=== PATIENT | female | born 1945 | race Caucasian/White ===

== ENCOUNTER 2025-04-13 10:50 | Outpatient (AMB) | payer MEDICARE, SELFPAY ==
--- NOTE | 2025-04-13 10:52 | MHC.PC.OV ---
Vital Signs 04/13/25 11:00 04/13/25 11:36 Height 5 ft 6 in Weight 160 lb 2 oz BMI 25.8 BP 154/80 H 160/90 H Blood Pressure Location Rt brachial Lt brachial Position Sitting Sitting Respiration 16 Pulse 77 Pulse Source Pulse Oximeter Temp 97.8 F Temp Source Oral Pulse Oximetry (%) 98 Oxygen Delivery Method Room Air Intake Visit Reasons: Bp Medication Intake Note: patient here for new patient visit Marketing Assistant Retail Division Required: No Is last menstrual period known: No Post menopausal: No Patient : No Allergies Penicillins Allergy (Intermediate, Verified 04/13/25 11:19) Swelling Medication List - Last Reconciled 04/13/25 by Zaida Portillo, [employer]- amlodipine 10 mg PO DAILY Tobacco use date assessed: 04/13/25 Fall risk assessment: 2 + Falls in past year Last assessed Fall Risk: 04/13/25 Dental Screening Dental Screen Date: 04/13/25 Did you have a dental visit in the last 12 months?: No Did you have a dental problem in the last 6 months where you did not have access to dental care?: No Was dental information given to patient?: No HPI HPI Comments History of Present Illness Details 79 Y/O F HTN, HLD, SANDOVAL, MDD, overactive bladder, COPD SurgHx: bilat knee replacements, MARGO, s/p cataract extraction FHx: Son 2022 drug OD, SocHx: retired Special water safety teacher Health Maintenance: Colon: Mammo DEXA PAP Vaccines: Tdap 04/13/25, PCV 20 due, otherwise UTD AAA screen EKG: done today in office, shows normal sinus rhythm, borderline QTC for 402/478 MS, LVH, prominent S-wave in V1 V2, tall R-wave in V5 V6, ST-depression with asymmetric T-wave inversion in lateral leads 1, aVL, V5 V6 [place] of Care: Optho wears glasses Visual Acuity: Hearing Screening: ACP: Dietary/Nutrition/Exercise Edu provided: Y History of Present Illness The patient is a 79-year-old female presenting to establish care and for management of her chronic conditions, including hyperlipidemia, hypertension, generalized anxiety disorder, and depressive disorder. Previous PCP: Lauren no records Hypertension: - The patient was found to have very high blood pressure during a physical for cataract surgery clearance and was started on amlodipine by Dr. Caceres, which has helped. - She still experiences hot flashes, similar to how she felt before taking the medication, although not as severe. - She endorses a history of falling and passing out. - Was on hctz and metorpolol in the past Depressive and Anxiety Disorder: - The patient's history is significant for major life stressors, including the of her son two years ago, a divorce, and the of three immediate family members within a two-month period. - She was previously treated for depression by Dr. Pastor with fluoxetine and trazodone, which improved her mood and sleep. - She stopped taking these medications about two years ago due to financial reasons, and her condition subsequently worsened. - She complains of head shaking, which her son has noticed. - was on prozac 50 mg in the past Insomnia: - The patient reports poor sleep, stating she will sleep for an hour and then be awake for three hours. - Her sleep improved when she was previously taking trazodone. WAs taking 100mg in the past. Asthmatic COPD: - The patient has a history of asthmatic COPD and previously used two inhalers: a estevez one for daily use and an orange one (albuterol) for emergencies, which she seldom used. - She also had a breathing machine that is now broken. Overactive Bladder: - The patient confirms a history of overactive bladder and reports that oxybutynin was helpful. - Since stopping her medications, she has had to wear a pad. Cardiac History: - The patient recalls undergoing a stress test. some things were questioned, but she was told everything was okay. - She also mentions wearing a Holter monitor overnight years ago, which turned out to be okay. - No one has previously mentioned a heart murmur to her. Past Medical History - Past Medical History: Hyperlipidemia, hypertension, generalized anxiety disorder, depressive disorder, and asthmatic COPD. - Past Surgical History: Hysterectomy, bilateral knee replacements, and cataract surgery in December. - Social History: The patient experienced the of her son from a drug overdose, a divorce, and the deaths of three other immediate family members. Review of Systems - Constitutional: Reports hot flashes. - Neurological: Reports head shaking and a history of falls and passing out. - Eyes: Reports history of cataracts. - HEENT: Reports chipped teeth from a fall. - Psychiatric: Reports depression and anxiety. - Sleep: Reports insomnia, sleeping for one hour then waking for three hours. - Genitourinary: Reports overactive bladder requiring the use of a pad. Physical Exam General: Well developed, well nourished, in no acute distress. Appears stated age. Head: Normocephalic, atraumatic. Eyes: Pupils are equal, round and reactive to light and accommodation. Conjunctivae are clear. Vision grossly normal. Noted presence of a cataract. Lungs: Clear to auscultation bilaterally. No rales, rhonchi or wheeze noted. Good air flow in all parker. Heart: Regular, rhythm, periods of tachycardia noted. Noted presence of a heart murmur. No clicks, rubs or gallops are noted. Musculoskeletal: Joints are nontender, without swelling, redness, or effusions. Pulses: Peripheral pulses are equal and palpable bilaterally. Extremities: No clubbing, cyanosis nor edema is noted. Neuro: Mild tremor of head noted, otherwise nonfocal Psych: Mood and affect appropriate, history of generalized anxiety disorder and depressive disorder. Results Labs ordered and pending Medical Decision Making The patient is a 79-year-old female here to establish care with multiple undertreated chronic conditions, including hypertension, depression, anxiety, insomnia, and asthmatic COPD. Her blood pressure remains elevated on amlodipine monotherapy, warranting the addition of a second agent. Hydrochlorothiazide 25 mg daily will be added, with counseling on the potential for hyponatremia. Given her significant psychosocial stressors and history of effective treatment, it is appropriate to restart fluoxetine for depression and trazodone for insomnia, beginning at lower doses to assess tolerance and efficacy & refer for counseling. For her asthmatic COPD, which has been untreated, a combination daily maintenance inhaler (Wixela) and a rescue inhaler (albuterol) will be prescribed to improve respiratory function and manage symptoms. A new heart murmur was auscultated on examination, prompting an order for a baseline EKG today to assess cardiac rhythm & echo. Baseline labs will be obtained to establish care. Preventative care will be updated with a Tdap vaccine administered in the office, and the patient has been counseled to receive the COVID-19 vaccine at her pharmacy. Plan 1. Hypertension - The patient's blood pressure is still high despite taking amlodiine 10mg. - Hydrochlorothiazide 25 mg once per day will be added to her regimen, to be taken at the same time as her amlodipine. - The patient will be monitored for side effects, particularly changes in sodium levels. 2. Depressive Disorder And Anxiety - The patient agrees to restart medications for her mood. - A prescription for fluoxetine 20 mg once per day will be sent to the pharmacy. - Counseling referral 3. Insomnia - A prescription for trazodone 50 mg will be sent, to be used as needed for sleep. 4. Copd - Wixela inhaler will be prescribed for daily use, two puffs twice per day. - Albuterol inhaler (orange/red) will be prescribed for as-needed use for wheezing or difficulty breathing. - Tdap and COVID vaccines recommended 5. Heart Murmur/Tachycardia - EKG done today in office, shows normal sinus rhythm, borderline QTC for 402/478 MS, LVH, prominent S-wave in V1 V2, tall R-wave in V5 V6, ST-depression with asymmetric T-wave inversion in lateral leads 1, aVL, V5 V6 Check echo treat HTN consider cards referral 6. Preventative Care - Baseline labs will be drawn today. - A Tdap vaccine will be administered today. - The patient is advised to get a COVID-19 vaccine at her pharmacy. Patient Instructions - Your prescriptions will be sent to [facility] on [facility] in [place]. - Take hydrochlorothiazide 25 mg once a day at the same time as your amlodipine for blood pressure. - Take fluoxetine 20 mg once a day for your mood. - Take trazodone 50 mg for sleep as needed; it is safe to take every night if you need it. - Use the Wixela (estevez) inhaler every day, one puff in the morning and one at night, and be sure to rinse your mouth afterward. - Use the red or orange inhaler (albuterol) only as needed if you are wheezing or having a hard time breathing. - We will draw blood for lab work today after your visit. - In the future, please have your labs done about a week before your appointment. - You will have an EKG (a picture of your heart) done today before you get your shot. - You will receive a Tdap (tetanus) vaccine today in the office. - When you go to the pharmacy to supervisor picking crew your medications, please ask for the COVID-19 vaccine. - It is safe to get the COVID-19 vaccine today, even though you are getting the Tdap vaccine. - Nurse visit for BP check in 4 weeks - Visit w/me in 8 weeks to fu on above. REcord request sent Consent Patient was informed and verbally consented to the use of an ambient scribe for clinic note documentation during this visit. Total time spent caring for the patient today was 45 minutes. This includes time spent before the visit reviewing the chart, time spent during the visit, and time spent after the visit on documentation, reviewing laboratory results, diagnostic imaging, medications, performing a medically necessary evaluation, counseling on diagnoses, care coordination, ordering appropriate tests, ordering appropriate medications, review of tests performed by other providers, reporting test results with the patient, communication with other healthcare providers. [facility] Medical History (Updated 04/13/25 @ 12:36 by Zaida Portillo, [facility]) Anxiety Arthritis Asthma Bilateral cataracts COPD (chronic obstructive pulmonary disease) Depression Headache High blood cholesterol High blood pressure Surgical History (Updated 04/13/25 @ 11:08 by COREY Castorena) H/O: hysterectomy History of bilateral knee replacement Family History (Updated 04/13/25 @ 11:10 by COREY Castorena) Father High blood pressure Mother Cancer Social History (Updated 04/13/25 @ 11:00 by COREY Castorena) Housing: House Patient Tobacco Use Status: Never used Tobacco e-Cigarette/Vaping Use: Never Used Second Hand Smoke Exposure: Yes service: No Current occupational status: retired Current occupational exposures/hazards: No Cognitive needs: No Hearing needs: No Vision needs: Yes Questionnaire PHQ-9 Over the last 2 weeks, how often have you been bothered by any of the following problems? 1. Little interest or pleasure in doing things: several days 2. Feeling down, depressed, or hopeless: several days 3. Trouble falling or staying asleep, or sleeping too much: more than half the days 4. Feeling tired or having little energy: more than half the days 5. Poor appetite or overeating: several days 6. Feeling bad about yourself - or that you are a failure or have let yourself or your family down: more than half the days 7. Trouble concentrating on things, such as reading the newspaper or watching television: several days 8. Moving or speaking so slowly that other people could have noticed. Or the opposite - being so fidgety or restless that you have been moving around a lot more than usual: not at all 9. Thoughts that you would be better off or of hurting yourself in some way: not at all Total score: 10 Depression Screening Interpretation: Positive Depression Screening Follow-up: Existing condition, New Medication prescribed and Community Mental Health Worker F/U Depression Screening Done: Yes 39098 - PHQ-9 Billing: Yes Source: Developed by Drs. Gui Pedro, Deb Medley, Jose Mcleod and colleagues, with an educational janie from [employer]. Thrive Questionnaire Date Thrive assessed: 04/13/25 I am a: Patient What is your living situation today?: I have a steady place to live Within the past 12 months, did the food you bought not last and you didn't have the money to get more?: Never true Within the past 12 months, did you worry whether your food would run out before you got money to buy more?: Never true Do you have trouble paying for medicines?: Yes Do you have trouble getting transportation to medical appointments?: Yes Do you have trouble paying your heating and electricity bill?: No Do you have trouble taking care of your child, family member or friend?: No Do you have trouble with day-to-day activities such as bathing, preparing meals, shopping, managing finances, etc.?: No Are you currently unemployed and looking for a job?: No Are you interested in more education?: No Please select the resources that you would like help with: Paying for medicine and Transportation Currently or been in a relationship where the following occur: No concerns reported THRIVE Score: 1 AUDIT C Alcohol Use Questionnaire (AUDIT-C) 1. How often do you have a drink containing alcohol?: Never 3. How often do you have six or more drinks on one occasion?: Never Total Score: 0 Score Reviewed/Action Taken: Yes SANDOVAL-7 AMB Questionnaire SANDOVAL-7 Date SANDOVAL - 7 assessed: 04/13/25 Feeling nervous, anxious, or on edge: 1 = Several days Not being able to stop or control worryin = More than half the days Worrying too much about different things: 1 = Several days Trouble relaxin = More than half the days Being so restless that it is hard to sit still: 1 = Several days Becoming easily annoyed or irritable: 1 = Several days Feeling afraid as if something awful might happen: 0 = Not at all Total SANDOVAL-7 score (0-4 normal; 5-9 mild; 10-14 moderate; 15-21 severe): 8 Source: Developed by Drs. Gui Pedro, Deb Medley, Jose Mcleod and colleagues, with an educational janie from [employer]. SANDOVAL-7 Assessment Billing SANDOVAL-7 Assessment Tool: SANDOVAL-7 Assessment 21386 Physical exam (Primary Care) Vital Signs: Last Vital Signs Temp 97.8 F 04/13/25 11:00 Pulse 77 04/13/25 11:00 Resp 16 04/13/25 11:00 BP 160/90 H 04/13/25 11:36 Pulse Ox 98 04/13/25 11:00 Oxygen Delivery Method Room Air 04/13/25 11:00 BMI result Body Mass Index 25.8 Tobacco/Smoking Status: Tobacco use Status Tobacco use date assessed 04/13/25 04/13/25 11:04 Patient Tobacco Use Status Never used Tobacco 04/13/25 11:04 e-Cigarette/Vaping Use Never Used 04/13/25 11:04 PHQ-9: PHQ-9 Score PHQ-9: Total score 10 04/13/25 12:18 Depression Screening Interpretation: Positive Depression Screening Follow-up: Existing condition, New Medication prescribed and Community Mental Health Worker F/U Thrive Assessment: Date of Thrive Assessment Date Thrive assessed 04/13/25 04/13/25 11:11 Currently or been in a relationship where the following occur: No concerns reported Office Procedures EKG 67052-[id number], Complete Immunizations Boostrix Tdap 2.5 Lf unit-8 mcg-5 Lf/0.5 mL intramuscular syringe Performing Provider: LEIGH Dubois Performing Location: [facility] Family Medicine Administered by: Doroteo Garrett RN on 04/13/25 12:08 Dose Route Admin Location Dispensed Lot Number Expiration Date [facility] Signal Constructor 0.5 mL IM Right Deltoid 0.5 mL [id number] 10/01/27 [id number] [employer] Total Dispensed Waste 0.5 mL 0 % VIS Given Date VIS Provided VIS Publication Date 04/13/25 Single Vaccine 20 Eligibility Eligibility Date Funding Source Not [facility] Eligible 04/13/25 Private Coding Level of Care Code New Pt Level 4 (06399) Add On Problem Visit Only Diagnoses Encounter to establish care with new provider Z76.89 SANDOVAL (generalized anxiety disorder) F41.1 Moderate episode of recurrent major depressive disorder F33.1 Major depression recurrence: recurrent Active/Remission status: currently active Major depression episode severity: moderate Mixed hyperlipidemia E78.2 Hyperlipidemia type: mixed hyperlipidemia Primary hypertension I10 Hypertension type: primary hypertension Need for Tdap vaccination Z23 Overactive bladder 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, 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 COPD type: emphysema Emphysema type: unspecified Heart murmur R01.1 History of stress test Z92.89 History of EKG Z92.89 CPT Codes EKG - CPT: 16124-Sgyogcwnpzzukwddh, Complete ([id number]) Additional Codes SANDOVAL-7 Assessment Billing - SANDOVAL-7 Assessment Tool: SANDOVAL-7 Assessment 39563 ([id number]) PHQ-9 - 38035 - PHQ-9 Billing: Yes ([id number]) Assessment & Plan Assessment & Plan (1) Encounter to establish care with new provider: Code(s): Z76.89 - Persons encountering health services in other specified circumstances (2) SANDOVAL (generalized anxiety disorder): Code(s): F41.1 - Generalized anxiety disorder Category: Medical (3) MDD (major depressive disorder): Code(s): F32.9 - Major depressive disorder, single episode, unspecified Category: Medical Qualifiers: Major depression recurrence: recurrent Active/Remission status: currently active Major depression episode severity: moderate Qualified Code(s): F33.1 - Major depressive disorder, recurrent, moderate (4) HLD (hyperlipidemia): Code(s): E78.5 - Hyperlipidemia, unspecified Category: Medical Qualifiers: Hyperlipidemia type: mixed hyperlipidemia Qualified Code(s): E78.2 - Mixed hyperlipidemia (5) High blood pressure: Code(s): I10 - Essential (primary) hypertension Category: Medical Qualifiers: Hypertension type: primary hypertension Qualified Code(s): I10 - Essential (primary) hypertension (6) Need for Tdap vaccination: Onset Date: ~04/13/25 Code(s): Z23 - Encounter for immunization Category: Medical (7) Overactive bladder: Code(s): N32.81 - Overactive bladder Category: Medical (8) COPD (chronic obstructive pulmonary disease): Code(s): J44.9 - Chronic obstructive pulmonary disease, unspecified Category: Medical Qualifiers: COPD type: emphysema Emphysema type: unspecified Qualified Code(s): J43.9 - Emphysema, unspecified (9) Heart murmur: Code(s): R01.1 - Cardiac murmur, unspecified Category: Medical (10) History of stress test: Code(s): Z92.89 - Personal history of other medical treatment Category: Medical (11) History of EKG: Onset Date: ~04/13/25 Comment: done today in office, shows normal sinus rhythm, borderline QTC for 402/478 MS, LVH, prominent S-wave in V1 V2, tall R-wave in V5 V6, ST-depression with asymmetric T-wave inversion in lateral leads 1, aVL, V5 V6 Code(s): Z92.89 - Personal history of other medical treatment Category: Medical Plan . Orders: Orders Complete Blood Count no Diff Today I10 - Essential (primary) hypertension Hemoglobin A1c Today I10 - Essential (primary) hypertension Microalbumin, Random (w Creat) Today I10 - Essential (primary) hypertension TSH reflex Free T4 Today I10 - Essential (primary) hypertension Vitamin B12 and Folate Today I10 - Essential (primary) hypertension Vitamin D 25-OH Total Today I10 - Essential (primary) hypertension Magnesium Today R00.0 - Tachycardia, unspecified Phosphorus Today R00.0 - Tachycardia, unspecified Comprehensive Met. Panel Today I10 - Essential (primary) hypertension Lipid Panel Today I10 - Essential (primary) hypertension CA echo transthoracic complete Today E78.5 - Hyperlipidemia, unspecified, I10 - Essential (primary) hypertension, I49.9 - Cardiac arrhythmia, unspecified, R01.1 - Cardiac murmur, unspecified, Z92.89 - Personal history of other medical treatment TDaP Immunization Today Z23 - Encounter for immunization Referrals Nurse Navigator Referral F41.1 - Generalized anxiety disorder Medications: New oxybutynin chloride ER 5 mg PO DAILY 90 tabs 2RF albuterol sulfate 90 mcg/actuation 2 puffs inhalation Q6H PRN 8.5 grams 0RF shortness of breath or wheezing 30 days fluoxetine 20 mg PO DAILY 90 caps 0RF trazodone 50 mg PO BEDTIME PRN 90 tabs 0RF sleep amlodipine 10 mg PO DAILY 90 tabs 2RF fluticasone propion-salmeterol 100-50 mcg/dose (Wixela Inhub) 1 inh inhalation BID 180 ea 2RF 90 days hydrochlorothiazide 25 mg PO DAILY 90 tabs 0RF Patient Instructions: Patient Instructions - Your prescriptions will be sent to [facility] on [facility] in [place]. - Take hydrochlorothiazide 25 mg once a day at the same time as your amlodipine for blood pressure. - Take fluoxetine 20 mg once a day for your mood. - Take trazodone 50 mg for sleep as needed; it is safe to take every night if you need it. - Use the Wixela (estevez) inhaler every day, one puff in the morning and one at night, and be sure to rinse your mouth afterward. - Use the red or orange inhaler (albuterol) only as needed if you are wheezing or having a hard time breathing. - We will draw blood for lab work today after your visit. - In the future, please have your labs done about a week before your appointment. - You will have an EKG (a picture of your heart) done today before you get your shot. - You will receive a Tdap (tetanus) vaccine today in the office. - When you go to the pharmacy to supervisor picking crew your medications, please ask for the COVID-19 vaccine. - It is safe to get the COVID-19 vaccine today, even though you are getting the Tdap vaccine. - Walk-In Care (Urgent Care): We Make it Easy Walk-in for urgent medical issues such as: ? Seasonal Allergies ? Insect Bites ? Cough ? Diarrhea ? Acute Asthma Attacks ? Back, Knee or Joint Pain ? Ear Infection ? Fever without a Rash ? Headaches ? Nausea ? [place] [facility], Rash or Skin Irritation ? Sore Throat ? Sports Physicals ? Vomiting Most insurances are accepted. Patients do not need to be part of the [facility] to seek care at the walk-in clinic. Locations [address], [place] Open Friday through Friday 8am-5pm *Hours may vary due to staffing availability. To confirm Walk-In Care hours please call. [facility] [place] [address] [address] ? [phone] [facility] Walk-In Care in [place] provides services to ages 18 and over. Open Friday-Friday: 7 a.m. to 5 p.m. and Friday: 9 a.m. to 3 p.m.* *Hours may vary due to staffing availability. To confirm Walk-In Care hours in [place], please call [phone]. [address] [place] [address] ? [phone] [facility] Walk-In Care in [place] provides services to ages 12 and over. Open Friday-Friday: 8 a.m. to 5 p.m. Hours may vary due to staffing availability. To confirm Walk-In Care hours in [place], please call [phone]. LABORATORY SERVICES: [facility] Lab ? Primary Location [address] [place] [address] Friday through Friday 6:00 AM ? 5:00 PM Friday 7:00 AM ? 11:00 AM* [phone] The [facility] Lab is centrally located near the front entrance of the [facility] for easy outpatient access. Convenient parking is provided for outpatients. *Hours may vary due to staffing availability. To confirm Laboratory hours for any location, please call [phone]. Offsite Location For your convenience, we offer offsite laboratory draw stations at the following locations: [address] [place] [address] ? [address], [address] Friday through Friday 7:30 AM ? 1:00 PM* [phone] *Hours may vary due to staffing availability. To confirm Laboratory hours for any location, please call [phone]. [place] ? [address] Friday through Friday 6:00 AM ? 3:30 PM* Friday 6:30 AM ? 3 PM* [phone] *Hours may vary due to staffing availability. To confirm Laboratory hours for any location, please call [phone] [place] [address] Friday through Friday 7:30 AM ? 4:00 PM* [phone] *Hours may vary due to staffing availability. To confirm Laboratory hours for any location, please call [phone]. [facility] Friday through 9:00 AM ? 4:00 PM* *Hours may vary due to staffing availability. To confirm Laboratory hours for any location, please call [phone]. Appointments are not necessary. Walk-ins are welcome. Like all the departments throughout the [facility], our Lab undergoes frequent reviews to ensure the quality and accuracy of test results, and our staff takes special pride in its status as a nationally accredited facility. Patient Portal: [facility] ONE PATIENT. ONE RECORD. BETTER CARE. [facility] has a fully integrated, cutting-edge mobile electronic health information system that has revolutionized the way we care for our patients and manage our organization. This system improves communication and coordination enabling us to provide safe, higher-quality care, and an overall positive experience for staff and patients. Our first priority, as always, is to deliver the highest quality care possible. The system is running in the background supporting that priority. This portal is for all [facility] services and practices. If you are experiencing any technical difficulties with enrolling or logging into the Patient Portal please complete the [facility] Patient Portal Technical Support Form. [facility] now offers a new secure on-line interactive tool for patients to review their health information ? ?Patient Portal. This interactive web portal will enable patients and their families to take an active role in their care by providing easy, secure access to their health information via the internet. The Patient Portal provides patients with instant access to their health information, including laboratory results, medications, allergies, demographic information, visit history, and more. In addition to managing their own care, parents and health care proxies with authorized consent will appreciate the ability to access the records of those individuals for whom they provide care. Please note: if you wish to gain access (Proxy) to another patient?s portal, you will be required to come to the Medical Records Department in person at [facility]. Both the patient giving proxy access and the proxy will need to provide photo identification and complete the appropriate authorization. The Patient Portal also allows track their appointments online. The [facility] Patient Portal also saves patients time by allowing them to submit updates to their demographic and contact information prior to their visits. Portal email notifications will also alert patients to any new activity on their portal, such as test results and new appointments. In order to initially enroll in the [facility] Patient Portal, you will need to enter some required information including the following: your [facility] Medical Record number your personal home email address name date of Please note: In order to enroll in the [facility] Patient Portal, we need to have your email address on file in your electronic medical record. ?The email address needs to be specific for one person (yourself) in order for your Portal enrollment to be successful. ?You can update your email address in person with our Registration staff when you are registering for a hospital visit. ?Otherwise, you will need to come to the Health Information Management (Medical Records) Department at [facility]. ?We are open from Friday ? Friday from 7:30 a.m. ? 4:30 p.m. ?You will be required to present a photo id. Once you have successfully enrolled in the Patient Portal, you will receive a one-time user id and password for the Portal, sent to your email address. ?This will allow you to log into the Patient Portal within 99 hrs and reset your own logon id and password, and define personal security questions. ?Once your permanent login and password have been set, you can log into the [facility] Patient Portal at any time via the blue button above or from the Portal Logon button on any page of the [facility] website. [facility] encourage all of our patients to enroll in Patient Portal as it presents a valuable opportunity for patients and their families to actively participate in their care and stay healthy Welcome to [facility]. ?We look forward to working with you.
--- OUTSIDE RECORDS SUMMARY | 2025-04-13 10:55 | XMS_ITS | Clinical Summary ---
Author Organization [facility] Address [address] [place] [address] Care Team Providers Care Senior Data Modeler Name Role Phone Unavailable Primary Care Provider Unavailabl e Immunizations Immunization Administration Dates Next Due Influenza trivalent, 0.5mL ( Fluzone High-dose) 65yo and older 01/26/2025 Surgical History Surgery Date Site/Laterality Comments OTHER SURGICAL HISTORY 2001 PROCEDURE: ND TOT ABD HYST W/PARAORTIC & PELVIC LYMPH NODE SHAUN; COMMENT: abnl menses OTHER SURGICAL HISTORY 04/25 PROCEDURE: [facility]OR[facility] CANC SCRN,SCR COLONOSCOPY+BE; COMMENT: normal KNEE ARTHROPLASTY 01/03/14 Left PROCEDURE: ND ARTHRS KNEE ABRASION ARTHRP/SONOGRAPHY TECHNOLOGIST DRLG/MICROFX; COMMENT: total, Sharee Chandler, Dr Oskar Martins Medical History Medical History Date Comments Essential hypertension, benign D X:Essential hypertension, benign Pure hypercholesterolemia DX:Pur e hypercholesterolemia Overweight(278.02) DX:Overweight (278.02) Esophageal reflux DX:Esophageal reflux Chest pain, unspecified 2004 DX:Chest pain, unspecified; COMMENT: ETT normal Unspecified urinary incontinence 07/30/2006 DX:Unspecified urinary incontinence Unspecified asthma(493.90) DX:Un specified asthma(493.90) Anxiety state, unspecified DX:An xiety state, unspecified; COMMENT: medication & therapy Dr Coleman Osteoarthritis of both knees 10/13/2012 DX: Osteoarthritis of both knees Family History Medical History Relation Name Comments Other cancer Brother 1 Other cancer Brother 2 Hypertension Father Other cancer Maternal Grandfather Other cancer Mother Other cancer Sister Breast cancer Neg Hx Colon cancer Neg Hx Ovarian cancer Neg Hx Relation Name Status Comments Brother 1 (Age 55) throat can cer and seizure Brother 2 Alive skin cancer and emphysema Father (Age 52) hypertensi on and stroke Maternal Grandfather Mouth c ancer - tobacco use Maternal Grandmother Mother (Age 95) tuberculos is and abdominal cancer Paternal Grandfather Paternal Grandmother [place] Sister skin cancer, es ophageal cancer Son 1 Alive Healthy Son 2 Alive Healthy Social History Tobacco Use Types Packs/Day Years Used Date Smoking Tobacco: Never Smokeless Tobacco: Never Alcohol Use Standard Drinks/Week Comments No 0 (1 standard drink = 0.6 oz pur e alcohol) Comments Unknown Sex and Gender Information Value Date Recorded Sex Assigned at Not on file Legal Sex Female 5:31 AM EST Gender Identity Not on file Sexual Orientation Not on file Plan of Treatment Health Maintenance Due Date Last Done Comments Pneumococcal Vaccine: 50+ Years (2 of 2 - PCV20 or PCV21) 01/28/2020 01/27/2019 RSV Immunization Adult Patients (1 - 1-dose 75+ series) 2021 DTaP,Tdap,and Td Vaccines (2 - Td or Tdap) 12/17/2023 12/16/2013 Depression Screening 04/21/2024 COVID-19 Vaccine ( season) 2024 08/17/2021, 02/01/2021, 08/02/2020, Additional history exists Zoster Vaccines Completed 03/14/2020, 12/24/2019 Influenza Vaccine Completed 01/26/2025, , 12/08/2019, Additional history exists HIB Vaccines Aged Out No longer eligi ble based on patient's age to complete this topic HPV Vaccines Aged Out No longer eligi ble based on patient's age to complete this topic Hepatitis A Vaccines Aged Out No long er eligible based on patient's age to complete this topic Hepatitis B Vaccines Aged Out No long er eligible based on patient's age to complete this topic IPV Vaccines Aged Out No longer eligi ble based on patient's age to complete this topic MMR Vaccines Aged Out No longer eligi ble based on patient's age to complete this topic Meningococcal ACWY Vaccine Aged Out N o longer eligible based on patient's age to complete this topic Meningococcal B Vaccine Aged Out No l onger eligible based on patient's age to complete this topic RSV Immunization Patients Under 20 months Aged Out No longer eligible based on patient's age to complete this topic Varicella Vaccines Aged Out No longer eligible based on patient's age to complete this topic
[2025-04-13 11:00] VITALS: BP 154/80; PULSE 77; RESP 16; TEMP 36.6; O2SAT 98; BMI 25.8
[2025-04-13 11:36] VITALS: BP 160/90
== END 2025-04-13 12:23 | disposition home or self-care (01) ==
PROVIDERS: PCP Nurse Practitioner Family; Visit Provider Nurse Practitioner Family
DX: Z76.89 Persons encountering health services in other specified circumstances (principal); F41.1 Generalized anxiety disorder; F33.1 Major depressive disorder, recurrent, moderate; J43.9 Emphysema, unspecified; E78.2 Mixed hyperlipidemia; I10 Essential (primary) hypertension; Z23 Encounter for immunization; N32.81 Overactive bladder; R01.1 Cardiac murmur, unspecified; Z92.89 Personal history of other medical treatment